=== PATIENT | female | born 1965 | race Hispanic/Latino ===

== ENCOUNTER 2019-05-25 09:25 | Outpatient (CLI) | payer OTHER, SELFPAY ==
--- NOTE | ~2019-05-25 | MM_ITS ---
EXAMINATION: MM scrn heriberto implant BI w addis HISTORY: Screening mammogram, family history of breast cancer in her mother and sister. TECHNIQUE: Craniocaudal and mediolateral oblique 3-D tomosynthesis images with implant displacement a nd synthetic 2-D images were generated. Craniocaudal and mediolateral oblique views of the breasts wi thout implant displacement were obtained using full field digital mammography. CAD analysis was submi tted and interpreted. COMPARISON: 04/30/2018, 04/24/2017, 04/21/2016 BREAST PARENCHYMAL COMPOSITION: There are scattered areas of fibroglandular density. FINDINGS: There is no evidence of suspicious mass, calcification, or architectural distortion to sugg est malignancy in either breast. There has been no suspicious interval change. IMPRESSION: 1. No mammographic evidence of malignancy. 2. Recommend routine screening mammography in one year. BI-RADS Category 1: Negative Reviewed, dictated and finalized at location A.
== END 2019-05-25 09:26 | disposition home or self-care (01) ==
LOC: ANHIMG 09:31
PROVIDERS: PCP Family Medicine; Visit Provider Family Medicine
DX: Z12.31 Encounter for screening mammogram for malignant neoplasm of breast (principal)
CPT/HCPCS: 77063; 77067

== ENCOUNTER 2019-11-22 19:22 | Emergency (ER) | payer OTHER, SELFPAY ==
--- NOTE | 2019-11-22 19:27 | ED.SKABFB ---
HPI - Skin/Abscess/Foreign Bdy General Chief complaint: Skin/Abscess/Foreign Body Stated complaint: spider bite right leg Time Seen by Provider: 11/22/19 19:28 Source: patient and RN notes reviewed Mode of arrival: ambulatory Limitations: no limitations History of Present Illness HPI narrative: 54-year-old female presents with concern for a possible spider or insect bite to the back of her right leg. Reports she noticed a spot 2 days ago. Reports she carlos a line around the area yesterday. She denies fever, malaise, musculoskeletal pain, drainage from the area. MD complaint: insect bite/sting Related Data Home Medications Medication Instructions Recorded Confirmed No Home Medications 11/22/19 11/22/19 Allergies Allergy/AdvReac Type Severity Reaction Status Date / Time No Known Allergies Allergy Verified 11/22/19 19:32 Review of Systems Review of Systems: Narrative: CONSTITUTIONAL: Denies malaise, chills, sweats, or fever. CARDIOVASCULAR: Denies chest pain, palpitations, or edema. RESPIRATORY: Denies dyspnea. SKIN: Reports insect bite to the back and right leg MUSCULOSKELETAL: Denies musculoskeletal pain All systems reviewed & are unremarkable except as noted in HPI and below PMFSH Family History Family History (Updated 10/12/15 @ 23:19 by DOCTOR UNKNOWN) Sibling Hypertension Father Family history of diabetes mellitus in first degree relative Mother Family history of malignant neoplasm of breast in first degree relative Social History Social History (Updated 04/25/19 @ 14:40 by Marley Lynn) Social History: Smoking status: Current every day smoker Tobacco type: cigarettes Second hand tobacco smoke exposure: Yes Alcohol intake: current Drinks per week: 2 Substance use: never Substance use type: does not use Gender identity (if verbalized by the patient): Female Comments At time of signature, agree with nursing past medical, surgical, social and family history. There is no relevant family history pertinent to the presenting complaint Exam Narrative: Exam Narrative: GENERAL: Well-appearing, well-nourished, and in no acute distress. HEAD: Normocephalic EYES: PERRLA, conjunctivae clear ENT: Mucous membranes moist NECK: Supple. CHEST: No respiratory distress. Speaks in full sentences. HEART: Regular rate and rhythm. EXTREMITIES: Right leg has grossly normal range of motion, no edema, normal strength and sensation. SKIN: Warm, dry, no rash. Approximately 3 cm in diameter area of induration, erythema without warmth or tenderness, central yellow scab noted. NEURO: Alert and oriented x3. No focal deficits. Cranial nerves II through XII grossly intact PSYCH: Normal mood and affect Course Course Emergency Course: Patient is aware of diagnosis, understands and agrees to treatment plan. Anticipatory guidance given. Patient agrees to follow-up as directed and is aware of reasons to seek care at the emergency department. Portions of this record may have been created with voice recognition software Vital Signs Vital signs: Vital Signs Temperature 98.4 F 11/22/19 19:30 Pulse Rate 73 11/22/19 19:30 Respiratory Rate 16 11/22/19 19:30 Blood Pressure 128/74 11/22/19 19:30 Pulse Oximetry 99 11/22/19 19:30 Temperature 98.4 F 11/22/19 19:30 Pulse Rate 73 11/22/19 19:30 Respiratory Rate 16 11/22/19 19:30 Blood Pressure 128/74 11/22/19 19:30 Pulse Oximetry 99 11/22/19 19:30 Reviewed. MDM - Skin/Abscess/Foreign Bdy MDM Narrative Medical decision making narrative: Exam findings show no acute concerns or changes; patient is non-toxic appearing and is in no distress. Patient is appropriate for outpatient treatment and follow-up. Differential Diagnosis Differential diagnosis: Likely abscess of skin or subcutaneous tissue, cellulitis and insect bites Critical Care Time Critical Care Time Critical Care Time: No Discharge Plan Discha
[2019-11-22 19:30] VITALS: BP 128/74; PULSE 73; RESP 16; TEMP 36.9; O2SAT 99
== END 2019-11-22 19:45 | disposition home or self-care (01) ==
PROVIDERS: Emergency Provider Nurse Practitioner; PCP Family Medicine
DX: S80.861A Insect bite (nonvenomous), right lower leg, initial encounter (principal); W57.XXXA Bitten or stung by nonvenomous insect and other nonvenomous arthropods, initial encounter; F17.210 Nicotine dependence, cigarettes, uncomplicated
CPT/HCPCS: 99211; G0463

== ENCOUNTER → 2020-06-18 07:17 | Outpatient (CLI) | payer OTHER, SELFPAY ==
--- NOTE | ~2020-06-18 | US_ITS ---
EXAMINATION: US abdomen limited EXAM DATE: 06/18/2020 08:12 INDICATION: R74.8 - Abnormal levels of other serum enzymes . TECHNIQUE: Multiple grayscale and Doppler images of the abdomen right upper quadrant were obtained (ruby y a technologist who performed the scan) and subsequently reviewed. There is no prior study for isaac skelton. FINDINGS: The pancreatic head and body are normal in appearance. The pancreatic tail is not visualized. The l iver has normal echogenicity and contour. There are no focal liver lesions identified. There is no evidence of intrahepatic biliary duct dilation. Portal venous flow was seen in the hepatopedal, nor mal direction and has normal Doppler waveform. No right-sided hydronephrosis. Common bile duct measures 5 mm, which is normal. The gallbladder wall is normal in thickness, with ex pected amount of distention. No sonographic evidence of pericholecystic fluid. There is no cholelit hiases. Technologist performing exam reports patient did not demonstrate sonographic Morales's sign. Please note that this sign is less reliable in patients who have received pain medication. IMPRESSION: 1. Unremarkable abdominal ultrasound exam. Reviewed, dictated and finalized at location A.
== END ==
PROVIDERS: PCP Family Medicine; Visit Provider Physician Assistant
DX: R74.8 Abnormal levels of other serum enzymes (principal)
CPT/HCPCS: 76705

== ENCOUNTER 2020-06-18 08:39 | Outpatient (CLI) | payer OTHER, SELFPAY ==
--- NOTE | ~2020-06-18 | MM_ITS ---
EXAMINATION: MM scrn heriberto implant BI w addis HISTORY: Screening mammogram TECHNIQUE: Craniocaudal and mediolateral oblique 3-D tomosynthesis images with implant displacement a nd synthetic 2-D images were generated. Craniocaudal and mediolateral oblique views of the breasts wi thout implant displacement were obtained using full field digital mammography. CAD analysis was submi tted and interpreted. COMPARISON: 05/25/2019, 04/30/2018, 04/24/2017 bilateral implant digital screening mammogram examinations BREAST PARENCHYMAL COMPOSITION: There are scattered areas of fibroglandular density. FINDINGS: Status post bilateral augmentation mammoplasty. There is no evidence of suspicious mass, calcification, or architectural distortion to suggest malig marlene in either breast. There has been no suspicious interval change. IMPRESSION: 1. No mammographic evidence of malignancy. 2. Recommend routine screening mammography in one year. BI-RADS Category 1: Negative Reviewed, dictated and finalized at location A.
== END 2020-06-18 08:40 | disposition home or self-care (01) ==
LOC: ANHIMG 08:43
PROVIDERS: PCP Family Medicine; Visit Provider Family Medicine
DX: Z12.31 Encounter for screening mammogram for malignant neoplasm of breast (principal)
CPT/HCPCS: 77063; 77067

== ENCOUNTER → 2021-03-12 09:47 | Outpatient (CLI) | payer OTHER, SELFPAY ==
--- NOTE | ~2021-03-12 | US_ITS ---
EXAMINATION: US thyroid EXAM DATE: 03/12/2021 10:05 INDICATION: Z85.850 - Personal history of malignant neoplasm of thyroid . TECHNIQUE: Multiple grayscale and Doppler images of the thyroid were obtained (by a technologist who performed the scan) and subsequently reviewed. Individual nodules and recommendations may be reporte d in accordance with TI-RADS system as designated by the 2017 ACR White Paper TI-RADS committee. Comp arison is made to prior examination from 09/02/2013. FINDINGS: The right thyroid lobe measures 3.9 x 1.7 x 1.1 cm with mildly diffusely heterogeneous thyroid echote xture and a focal hyperechoic, category TR 3 nodule measuring 6 x 4 x 4 mm which was not identified o n prior study 2013. The left thyroidectomy bed is unremarkable, no regional lymphadenopathy. IMPRESSION: New small right thyroid lobe nodule; consider one-year follow-up ultrasound. Reviewed, dictated and finalized at location A. BENDER TANK IMPRESSION: New small right thyroid lobe nodule; consider one-year follow-up penelope mackey
== END ==
PROVIDERS: PCP Family Medicine; Visit Provider Family Medicine
DX: Z85.850 Personal history of malignant neoplasm of thyroid (principal); E04.1 Nontoxic single thyroid nodule
CPT/HCPCS: 76536